=== PATIENT | male | born 1940 | race Caucasian/White ===

== ENCOUNTER 2021-09-27 03:11 | Emergency (ER) | payer OTHER ==
[~2021-09-27] VITALS: Ht 177.8 cm; Wt 81.7 kg
[2021-09-27] MEDS ORDERED: BENADRYL25 MG PO (06:43)
[2021-09-27] MEDS ORDERED: Prednisone50 MG PO (06:43)
[2021-09-27] MEDS ORDERED: ZYRTEC10 M1 PO (06:46)
== END 2021-09-27 07:19 | disposition home or self-care (01) ==
LOC: ER 03:11
DX: L50.1 Idiopathic urticaria (principal); Z79.899 Other long term (current) drug therapy; Z79.52 Long term (current) use of systemic steroids
CPT/HCPCS: J3301

== ENCOUNTER 2024-01-03 09:10 | Emergency (ER) | payer OTHER ==
[~2024-01-03] VITALS: Ht 175.3 cm; Wt 68.0 kg
[~2024-01-03 09:10] MED LIST: BENADRYL25 MG PO; Prednisone50 MG PO; ZYRTEC10 M1 PO
[2024-01-03 10:29] VITALS: BP 161/78
== END 2024-01-03 10:30 | disposition home or self-care (01) ==
LOC: ER 09:10
DX: L03.115 Cellulitis of right lower limb (principal); L02.415 Cutaneous abscess of right lower limb; R22.41 Localized swelling, mass and lump, right lower limb; Z79.899 Other long term (current) drug therapy
CPT/HCPCS: 99282

== ENCOUNTER 2024-02-28 12:08 | Emergency (ER) | payer OTHER ==
[~2024-02-28] VITALS: Ht 177.8 cm; Wt 76.7 kg
[2024-02-28 12:51] LABS: BASOPHILS ABSOLUTE AUTO 0.01 K/mm3 (0.00-0.23); BASOPHILS PERCENT AUTO 0 % (0-2); EOSINOPHILS ABSOLUTE AUTO 0.07 K/mm3 (0.00-0.68); EOSINOPHILS PERCENT AUTO 1 % (0-6); Hematocrit 35.5 % (37.0-53.0); Hemoglobin 11.8 g/dL (13.5-17.5); IMMATURE GRAN ABSOLUTE AUTO 0.03 K/mm3 (0.00-0.10); IMMATURE GRAN PERCENT AUTO 0 % (0-1); LYMPHOCYTES ABSOLUTE AUTO 0.95 K/mm3 (0.84-5.20); LYMPHOCYTES PERCENT AUTO 12 % (21-46); MONOCYTES ABSOLUTE AUTO 1.19 K/mm3 (0.16-1.47); MONOCYTES PERCENT AUTO 14 % (4-13); Mean Corpuscular HGB Conc 33.2 g/dL (31.5-36.5); Mean Corpuscular Volume 90 fL (80-100); Mean Platelet Volume 10.8 fL (9.1-12.4); NEUTROPHILS ABSOLUTE AUTO 6.04 K/mm3 (1.96-9.15); NEUTROPHILS PERCENT AUTO 73 % (41-73); Platelet Count 200 K/mm3 (150-400); RDW Coefficient Variation 13.8 % (11.7-14.2); RDW Standard Deviation 46.5 fL (35.1-46.3); Red Blood Cell Count 3.93 M/mm3 (4.30-5.90); White Blood Cell Count 8.29 K/mm3 (4.00-11.30)
[2024-02-28] MEDS ORDERED: SENN187 PO (13:15)
[2024-02-28] MEDS ORDERED: Aspir 8181 MG PO (13:15)
[2024-02-28] MEDS ORDERED: OXYC5 PO (13:15)
[2024-02-28] MEDS ORDERED: DOCU100 PO (13:16)
[2024-02-28] MEDS ORDERED: Acetaminophen325 M1 PO (13:16)
[2024-02-28 13:25] LABS: Alanine Aminotransfer (ALT/SGP 31 U/L (12-78); Albumin, Blood 3.2 g/dL (3.4-5.0); Alk Phos 67 U/L (50-136); Anion Gap 10 mmol/L (3-11); Aspartate Aminotrans (AST/SGOT 48 U/L (12-37); Bilirubin, Total 0.9 mg/dL (0.1-1.0); Blood Urea Nitrogen 45 mg/dL (8-24); Bun/Creatinine Ratio 31.2 (12.0-20.0); C-REACTIVE PROTEIN, EXT RANGE >19.000 mg/dL (0.000-0.300); CO2, Blood 26 mmol/L (21-32); Calcium, Blood 9.2 mg/dL (8.5-10.1); Chloride, Blood 105 mmol/L (98-108); Creatinine, Blood 1.44 mg/dL (0.60-1.20); Globulin, Blood 3.3 g/dL (2.2-4.0); Glomerular Filtration Rate 48 (60-); Glucose, Blood 117 mg/dL (70-99); Sodium, Blood 137 mmol/L (136-145); Total Protein, Blood 6.5 g/dL (6.4-8.2)
[2024-02-28] MEDS ORDERED: XARELTO20 MG PO (14:59)
[2024-02-28 15:07] VITALS: BP 114/99
== END 2024-02-28 15:30 | disposition home or self-care (01) ==
LOC: ER 12:08
PROVIDERS: Student in an Organized Health Care Education/Training Program
DX: L76.22 Postprocedural hemorrhage of skin and subcutaneous tissue following other procedure (principal); I82.401 Acute embolism and thrombosis of unspecified deep veins of right lower extremity; D64.9 Anemia, unspecified; I10 Essential (primary) hypertension; F17.210 Nicotine dependence, cigarettes, uncomplicated; Z98.890 Other specified postprocedural states; Z79.899 Other long term (current) drug therapy
CPT/HCPCS: 73701; 80053; 85025; 85651; 86140; 93971; 99284-25; Q9967

== ENCOUNTER 2024-12-20 11:38 | Emergency (ER) | payer OTHER ==
[~2024-12-20] VITALS: Ht 177.8 cm; Wt 72.6 kg
[~2024-12-20 11:38] MED LIST changes: +ASPI81CH PO; +ATOR40TA PO; +Acetaminophen325 M1 PO; +Aspir 8181 MG PO; +DOCU100 PO; +ENTRESTO 24 MG1 EACH PO; +JARDIANCE10 MG PO; +LISINOPRIL-HCT1 EACH PO; +METO25ER PO; +OXYC5 PO; +SENN187 PO; +XARELTO20 MG PO
[2024-12-20 11:42] VITALS: BP 139/106
[2024-12-20 12:48] LABS: BASOPHILS ABSOLUTE AUTO 0.02 K/mm3 (0.00-0.23); BASOPHILS PERCENT AUTO 0 % (0-2); EOSINOPHILS ABSOLUTE AUTO 0.05 K/mm3 (0.00-0.68); EOSINOPHILS PERCENT AUTO 1 % (0-6); Hematocrit 41.7 % (37.0-53.0); Hemoglobin 13.9 g/dL (13.5-17.5); IMMATURE GRAN ABSOLUTE AUTO 0.03 K/mm3 (0.00-0.10); IMMATURE GRAN PERCENT AUTO 1 % (0-1); LYMPHOCYTES ABSOLUTE AUTO 1.08 K/mm3 (0.84-5.20); LYMPHOCYTES PERCENT AUTO 20 % (21-46); MONOCYTES ABSOLUTE AUTO 0.39 K/mm3 (0.16-1.47); MONOCYTES PERCENT AUTO 7 % (4-13); Mean Corpuscular HGB Conc 33.3 g/dL (31.5-36.5); Mean Corpuscular Volume 90 fL (80-100); NEUTROPHILS ABSOLUTE AUTO 3.87 K/mm3 (1.96-9.15); NEUTROPHILS PERCENT AUTO 71 % (41-73); NRBC ABSOLUTE 0.00 K/mm3 (0.00-0.02); NRBC Auto 0.0 /100 WBC (0.0-0.2); RDW Coefficient Variation 13.5 % (11.7-14.2); RDW Standard Deviation 44.2 fL (35.1-46.3)
[2024-12-20 13:04] LABS: Platelet Count 199 K/mm3 (150-400)
[2024-12-20 15:09] LABS: Alanine Aminotransfer (ALT/SGP 28.0 U/L (12-78); Albumin, Blood 3.5 g/dL (3.4-5.0); Albumin/Globulin Ratio 1.0 (0.8-1.8); Anion Gap 9.0 mmol/L (3-11); Aspartate Aminotrans (AST/SGOT 29.0 U/L (12-37); Bilirubin, Total 1.1 mg/dL (0.1-1.0); Blood Urea Nitrogen 26.0 mg/dL (8-24); CO2, Blood 25.0 mmol/L (21-32); Calcium, Blood 8.7 mg/dL (8.5-10.1); Chloride, Blood 107.0 mmol/L (98-108); Creatinine, Blood 1.3 mg/dL (0.60-1.20); Globulin, Blood 3.4 g/dL (2.2-4.0); Glucose, Blood 116.0 mg/dL (70-99); Potassium, Blood 4.1 mmol/L (3.5-5.5); Sodium, Blood 137.0 mmol/L (136-145); Total Protein, Blood 6.9 g/dL (6.4-8.2)
== END 2024-12-20 15:31 | disposition home or self-care (01) ==
LOC: ER 11:38
PROVIDERS: Emergency Medicine
DX: K40.90 Unilateral inguinal hernia, without obstruction or gangrene, not specified as recurrent (principal); K41.90 Unilateral femoral hernia, without obstruction or gangrene, not specified as recurrent; I10 Essential (primary) hypertension; F17.210 Nicotine dependence, cigarettes, uncomplicated; Z79.82 Long term (current) use of aspirin; Z79.899 Other long term (current) drug therapy
CPT/HCPCS: 36415; 74177; 80053; 85025; 99284-25; Q9967